=== PATIENT | male | born 1960 | race Caucasian/White ===

== ENCOUNTER 2019-08-06 05:43 | Day surgery (SDC) | payer OTHER ==
[~2019-08-06] VITALS: Ht 167.6 cm; Wt 75.0 kg
[~2019-08-06 05:43] MED LIST: RINGERS SOLUTION,LACTATED 1,000 ML IV ONE
[2019-08-06] MEDS ORDERED: FentaNYL CITRATE-PF 100 MCG/2 ML VIAL IVP ONE (05:44)
[2019-08-06] MEDS ORDERED: SUCCINYLCHOLINE CHLORIDE 20 MG/ML 10 ML VIAL IVP ONE (05:44)
[2019-08-06] MEDS ORDERED: DEXAMETHASONE SOD PHOS 4 MG/ML VIAL IVP ONE (05:44)
[2019-08-06] MEDS ORDERED: MIDAZOLAM HCL 2 MG/2 ML VIAL IVP ONE (05:44)
[2019-08-06] MEDS ORDERED: ROCURONIUM BROMIDE 10 MG/ML 5 ML VIAL IVP ONE (05:44)
[2019-08-06] MEDS ORDERED: HYDROmorphone 2 MG/ML SYRINGE IVP ONE (05:44)
[2019-08-06] MEDS ORDERED: LIDOCAINE/PF 2% 5 ML VIAL IM ONE (05:44)
[2019-08-06] MEDS ORDERED: PROPOFOL 1% 20 ML VIAL IVP ONE (05:44)
[2019-08-06] MEDS ORDERED: DiphenhydrAMINE HCL 50 MG/ML VIAL IVP ONE (05:44)
[2019-08-06] MEDS ORDERED: MetroNIDAZOLE 500 MG/NACL 100 ML IV ONE ×2 (05:45→07:11)
[2019-08-06] MEDS ORDERED: CeFAZolin 2 GM/DEXTROSE 50 ML IV ONE ×2 (05:45→06:16)
[2019-08-06] MEDS ORDERED: RINGERS SOLUTION,LACTATED 1,000 ML IV ONE (06:00)
[2019-08-06] MEDS ORDERED: NACL IV ONE (06:16)
[2019-08-06] MEDS ORDERED: METRONIDAZOLE IV ONE (06:16)
[2019-08-06 06:27] LABS: BASOPHILS % (AUTO) 0.6 % (0.0-2.0); EOSINOPHILS % (AUTO) 9.2 % (1.0-6.0); HEMATOCRIT 44.3 % (41-53); LYMPHOCYTES # (AUTO) 1.7 K/uL (1.0-4.8); LYMPHOCYTES % (AUTO) 23.1 % (22.0-44.0); MEAN CORPUSCULAR HEMOGLOBIN 29.5 pg (26.0-34.0); MEAN CORPUSCULAR HGB CONC 33.8 G/dL (31.0-37.0); MEAN CORPUSCULAR VOLUME 87 fL (80-100); MONOCYTES # (AUTO) 0.6 K/uL (0.1-1.0); MONOCYTES % (AUTO) 8.3 % (2.0-9.0); NEUTROPHILS # (AUTO) 4.2 K/uL (1.8-7.7); NEUTROPHILS % (AUTO) 58.8 % (40.0-70.0); PLATELET COUNT (AUTO) 206 K/uL (150-450); RED BLOOD CELL COUNT(AUTO) 5.09 MIL/uL (4.50-5.90); RED CELL DISTRIBUTION WIDTH 12.9 % (11.5-14.5)
[2019-08-06 06:35] LABS: ANION GAP 15 mmol/L (8-16); CALCIUM, TOTAL 8.6 mg/dL (8.8-10.5); CARBON DIOXIDE 22 mmol/L (22-29); CHLORIDE 104 mmol/L (98-107); GLUCOSE,RANDOM 112 mg/dL (70-110); POTASSIUM 3.8 mmol/L (3.5-5.1); SODIUM SERUM 141 mmol/L (136-145); UREA NITROGEN, BLOOD 23 mg/dL (7-18)
[2019-08-06 06:38] LABS: PROTHROMBIN TIME 10.4 SEC (9.4-11.6)
[2019-08-06 06:41] LABS: CREATININE 0.83 mg/dL (0.60-1.30); GLOMERULAR FILTR. RATE CALC > 60 mL/min (>60)
[2019-08-06] MEDS ORDERED: LIDOCAINE 2%/EPI 1:200,000/PF 20 ML VIAL ONE (06:55)
[2019-08-06] MEDS ORDERED: IOHEXOL 240 MG/ML 20 ML VIAL ONE (06:55)
[2019-08-06] MEDS ORDERED: BUPIVACAINE HCL/PF 0.5% 30 ML VIAL ONE (06:56)
[2019-08-06] MEDS ORDERED: SODIUM CHLORIDE 0.9% 0 ML ONE (06:56)
[2019-08-06] MEDS ORDERED: ACETAMINOPHEN 1000 MG/ISO-OSM 100 ML IV ONE (08:26)
[2019-08-06] MEDS ORDERED: SUGAMMADEX SODIUM 200 MG/2 ML VIAL IVP ONE (08:36)
[2019-08-06] MEDS ORDERED: ACETAMINOPHEN 500 MG TABLET PO PRN (09:00)
[2019-08-06] MEDS ORDERED: IBUPROFEN 800 MG TABLET PO PRN (09:00)
[2019-08-06] MEDS ORDERED: DILTIAZEM HCL 5 MG/ML 5 ML VIAL IVP PRN (09:15)
[2019-08-06] MEDS ORDERED: HYDROmorphone 2 MG/ML SYRINGE IVP PRN ×3 (09:15)
[2019-08-06] MEDS ORDERED: HYDROmorphone 2 MG/ML SYRINGE ONE (09:33)
== END 2019-08-06 11:38 | disposition home or self-care (01) ==
LOC: SURGERY 05:43
PROVIDERS: ATTEND Surgery
DX: K80.10 Calculus of gallbladder with chronic cholecystitis without obstruction (principal); E78.5 Hyperlipidemia, unspecified; Z79.01 Long term (current) use of anticoagulants; Z79.899 Other long term (current) drug therapy
CPT/HCPCS: 36415; 47562; 80048; 85025; 85610; 85730; 88304; J0131; J0330; J0690; J1100; J1170; J1200; J2250; J2704; J3010; J3490 ×4; J7120; Q9966; J7030